=== PATIENT | female | born 1995 | race Caucasian/White ===

== ENCOUNTER 2016-12-27 08:23 | Emergency (ER) | payer OTHER ==
[~2016-12-27] VITALS: Ht 188 cm; Wt 86.0 kg
[2016-12-27 08:28] VITALS: TEMP 36.8; Ht 188 cm; Wt 86.0 kg
[2016-12-27] MEDS ORDERED: BCPILLS PO (09:15)
--- NOTE | 2016-12-27 10:54 | DIAGNOSTIC IMAGING REPORT ---
MRI OF THE BRAIN WITHOUT AND WITH IV CONTRAST CLINICAL HISTORY: Severe right-sided headache. Right pupil dilatation. COMPARISON STUDY: No previous studies for comparison. TECHNIQUE: MRI of the brain was performed from the vertex to the skull base utilizing various T1 and T2 weighted sequences. Following the IV administration of 8 mL of Gadavist contrast, additional enhanced images were obtained. FINDINGS: Sagittal T1, axial diffusion, proton density and T2 weighted axial, coronal FLAIR, and pre and post axial T1-weighted images were acquired. These were supplemented with post gadolinium coronal T1 weighted images. No intra or extra-axial mass lesions are visualized. Axial diffusion-weighted images reveal no evidence of acute or subacute infarction. There is no evidence of ventricular dilatation. Proton density T2-weighted and FLAIR images reveal no significant intraparenchymal signal abnormalities. There are no abnormal flow voids. There is no evidence of pathologic enhancement. IMPRESSION: Normal MRI of the brain. Electronically signed by: Igor Boyer M.D. 12/27/2016 10:53 AM Dictated Date/Time: 12/27/2016 10:50 AM
--- NOTE | 2016-12-27 11:51 | EMERGENCY ROOM VISIT NOTE ---
History First contact with patient: 08:45 Chief Complaint: EYE PAIN Stated Complaint: PAIN BEHIND EYE, BLURRED VISION History of Present Illness The patient is a 21 year old female who presents to the Emergency Room with complaints of dilation of her right pupil and right-sided headache. The patient states that last night she started with pain adjacent to her right eye and radiating back across the hoahaoism area. This morning when she woke up she noticed her right pupil was dilated and continued to have the right-sided headache. The patient states her vision is blurry worse with near vision the patient denies any other visual changes or photosensitivity. The patient wears contacts. The patient states that in the past her left pupil would be dilated intermittently but never her right eye. She has never had any diagnostic imaging performed of her head although she has had 2 concussions one year ago.. Review of Systems 10 system review was performed and was negative unless stated otherwise history of present illness. Social History Smoking Status: Never Smoker Current/Historical Medications Scheduled Control Pills ( Control Pills), 1 TAB PO DAILY Allergies Coded Allergies: Penicillins (Unverified Allergy, Severe, anaphylaxis, 12/27/16) Sulfa Antibiotics (Unverified Allergy, Severe, anaphylaxis, 12/27/16) Physical Exam Vital Signs Date Time Temp Pulse Resp B/P (MAP) Pulse Ox O2 Delivery O2 Flow Rate FiO2 12/27/16 10:03 72 16 126/79 99 Room Air 12/27/16 08:28 36.8 79 17 125/67 98 Room Air Right Eye Acuity: 20/40 WITH CORRECTION Left Eye Acuity: 20/25 WITH CORRECTION Physical Exam GENERAL: 21-year-old white female appears in no acute distress. MENTAL Status: Alert and oriented 3. HEAD: Atraumatic, no acute bony abnormality noted. EYES: PERRLA. EOMs intact. Right pupil is dilated Funduscopic exam unremarkable. EARS: Canals clear. TMs without fluid level noted. NECK: Supple, no lymphadenopathy noted. No carotid bruits noted. LUNGS: Clear auscultation without wheezes rales or rhonchi. CARDIAC: Regular rate and rhythm without murmur. Pulses is full and equal throughout.. NEURO:Cranial nerves two through 12 intact. Cerebellar function intact with [id number]. Fine motor intact with alternating finger motions. Medical Decision & Procedures ER Provider Diagnostic Interpretation: MRI OF THE BRAIN WITHOUT AND WITH IV CONTRAST CLINICAL HISTORY: Severe right-sided headache. Right pupil dilatation. COMPARISON STUDY: No previous studies for comparison. TECHNIQUE: MRI of the brain was performed from the vertex to the skull base utilizing various T1 and T2 weighted sequences. Following the IV administration of 8 mL of Gadavist contrast, additional enhanced images were obtained. FINDINGS: Sagittal T1, axial diffusion, proton density and T2 weighted axial, coronal FLAIR, and pre and post axial T1-weighted images were acquired. These were supplemented with post gadolinium coronal T1 weighted images. No intra or extra-axial mass lesions are visualized. Axial diffusion-weighted images reveal no evidence of acute or subacute infarction. There is no evidence of ventricular dilatation. Proton density T2-weighted and FLAIR images reveal no significant intraparenchymal signal abnormalities. There are no abnormal flow voids. There is no evidence of pathologic enhancement. IMPRESSION: Normal MRI of the brain. Electronically signed by: Igor Boyer M.D. 12/27/2016 10:53 AM Dictated Date/Time: 12/27/2016 10:50 AM ED Course The patient was evaluated. The patient was offered pain medication but declined. The patient's visual acuity was 2040 in the right eye with correction and 20/25 in the left eye with correction. Pressure of her left eye was 16.8 and the pressure of her left eye was 18.0. MRI of the brain was performed with and without contrast as above without any acute findings. The patient's case was discussed with Dr. Rogers who agreed with treatment plan. Dr. Mendieta was consulted and informed of all clinical and diagnostic findings. He will see the patient in his office today at 3 PM. The patient was informed and was in agreement with treatment plan. The patient was discharged home in stable condition. Medical Decision Differential diagnosis include iritis, optic neuritis, brain neoplasm Impression Primary Impression: Pupil dilation Additional Impression: Headache Departure Information Dispostion Home / Self-Care Condition GOOD Referrals [facility] (PCP) Jakub Mendieta D.O. Forms HOME CARE DOCUMENTATION FORM, IMPORTANT VISIT INFORMATION, WORK / SCHOOL INSTRUCTIONS Patient Instructions [facility] Additional Instructions Tylenol as needed for headache. Appointment with Dr. Mendieta today at 3 PM. Recommend arriving 15 minutes prior to your appointment time to fill out paperwork. Problem Qualifiers Additional Impression: Headache Headache type: unspecified Headache chronicity pattern: acute headache Intractability: not intractable Qualified Codes: R51 - Headache
[2016-12-27 12:03] VITALS: BP 122/76; PULSE 68; O2SAT 99
[2016-12-27] MEDS ORDERED: GADAVIST IV PRN (14:30)
== END 2016-12-27 12:07 | disposition home or self-care (01) ==
LOC: C.EDB 08:26 → C.EDA 12:07
DX: H57.04 Mydriasis (principal); R51 Headache

== ENCOUNTER 2016-12-27 16:43 | Emergency (ER) | payer OTHER ==
[~2016-12-27] VITALS: Ht 188 cm; Wt 86.0 kg
[~2016-12-27 16:43] MED LIST: BCPILLS PO
[2016-12-27 16:46] VITALS: TEMP 37; Ht 188 cm; Wt 86.0 kg
[2016-12-27 17:21] LABS: BASO % 0.2 %; BASO ABS # 0.01 K/uL (0-0.2); COMPLETE YES; HEMATOCRIT 38.3 % (37-47); IG% 0.2 %; LYMPH % 31.2 %; LYMPH ABS # 1.97 K/uL (1.2-3.4); MEAN CELL VOLUME 90.3 fL (80-100); MEAN CORPUSCULAR HEMOGLOBIN 29.7 pg (25-34); MEAN CORPUSCULAR HGB CONC 32.9 g/dl (32-36); MEAN PLATELET VOLUME 9.5 fL (7.4-10.4); MONO % 7.6 %; NEUT % 59.8 %; PLATELET COUNT 284 K/uL (130-400); RED BLOOD COUNT 4.24 M/uL (4.2-5.4); WHITE BLOOD COUNT 6.31 K/uL (4.8-10.8)
--- NOTE | 2016-12-27 17:21 | EMERGENCY ROOM VISIT NOTE ---
History Report prepared by Renoibjayne: Ke Brito Under the Supervision of: Dr. Asmita Monae D.O. First contact with patient: 16:49 Chief Complaint: HEADACHE Stated Complaint: CRANIAL NERVE PALSY WITH MIGRAINE HE- REFERRED History of Present Illness The patient is a 21 year old female who was referred to the ED for an MRA. The patient was seen in the ED this morning with persistent right pupil dilation and a right-sided headache. The headache started around midnight, and the right pupil was noted to be dilated by a friend this morning. The patient had dilation of the left pupil on December 16, which lasted a few hours. The patient was referred back to the ED by Dr. Barrett (Rubber Compounder Formulator) for an MRA. The patient has a follow up with Ophthalmology scheduled tomorrow. She does have a family history of migraines maternally. Dr. Barrett suggested that the patient could be experiencing an atypical ocular migraine when I spoke with him over the phone prior to patient's arrival. She was referred to the ED to role out other pathologies. No recent illness. No hx of WELCH in her, unsure if any family members get headaches. 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 Stat MRI performed earlier today as an outpt was normal. Source of History: patient Onset: today Position: ear (right) Quality: other (dilation) Timing: other (persistent) Associated Symptoms: + headache Review of Systems See HPI for pertinent positives & negatives. A total of 6 systems reviewed and were otherwise negative. Past Medical & Surgical Medical Problems: (1) control Family History No pertinent family history Social History Smoking Status: Never Smoker Occupation Status: [employer] student Current/Historical Medications Scheduled Control Pills ( Control Pills), 1 TAB PO DAILY Allergies Coded Allergies: Penicillins (Unverified Allergy, Severe, anaphylaxis, 12/27/16) Sulfa Antibiotics (Unverified Allergy, Severe, anaphylaxis, 12/27/16) Physical Exam Vital Signs Date Time Temp Pulse Resp B/P (MAP) Pulse Ox O2 Delivery O2 Flow Rate FiO2 12/27/16 18:43 72 18 106/89 99 12/27/16 16:46 37.0 74 16 124/87 97 Room Air Physical Exam GENERAL: alert, well appearing, well nourished, no distress, non-toxic HEAD: No tenderness to palpation over the temples. EYE EXAM: Right pupil is markedly dilated, minimal / sluggish light reflex both direct and consensual, no evidence of trauma or subconjunctival hemorrhage, very minimal ptosis, no periorbital edema or ecchymosis. HEART: normal pulses LUNGS: no increased wob, equal chest rise/fall SKIN: no rash/sores NEURO EXAM: Normal gait, moving all extremities appropriately. No facial droop , normal speech, no ataxia, no focal deficit. Medical Decision & Procedures ER Provider Diagnostic Interpretation: Radiology results have been interpreted by the radiologist and reviewed by me. Brain MRA HISTORY: 3rd nerve palsy, ptosis, headache TECHNIQUE: 3-D [id number] MRA of the brain was performed without contrast. COMPARISON STUDY: None. FINDINGS: Visualized intracranial internal carotid arteries, distal vertebral arteries, and basilar artery are widely patent. There is no significant stenosis, occlusion, or aneurysm seen within the bilateral ACAs, MCAs, or recyclable materials distributor. IMPRESSION: No significant stenosis, occlusion, or aneurysm within the [place] of [place]. Electronically signed by: Jd Echols M.D. 12/27/2016 5:57 PM Dictated Date/Time: 12/27/2016 5:56 PM Laboratory Results 12/27/16 17:10 Red Blood Count 4.24, Mean Corpuscular Volume 90.3, Mean Corpuscular Hemoglobin 29.7, Mean Corpuscular Hemoglobin Concent 32.9, Mean Platelet Volume 9.5, Neutrophils (%) (Auto) 59.8, Lymphocytes (%) (Auto) 31.2, Monocytes (%) (Auto) 7.6, Eosinophils (%) (Auto) 1.0, Basophils (%) (Auto) 0.2, Neutrophils # (Auto) 3.78, Lymphocytes # (Auto) 1.97, Monocytes # (Auto) 0.48, Eosinophils # (Auto) 0.06, Basophils # (Auto) 0.01 12/27/16 17:10 Test 12/27/16 17:10 White Blood Count 6.31 K/uL (4.8-10.8) Red Blood Count 4.24 M/uL (4.2-5.4) Hemoglobin 12.6 g/dL (12.0-16.0) Hematocrit 38.3 % (37-47) Mean Corpuscular Volume 90.3 fL (80-100) Mean Corpuscular Hemoglobin 29.7 pg (25-34) Mean Corpuscular Hemoglobin Concent 32.9 g/dl (32-36) Platelet Count 284 K/uL (130-400) Mean Platelet Volume 9.5 fL (7.4-10.4) Neutrophils (%) (Auto) 59.8 % Lymphocytes (%) (Auto) 31.2 % Monocytes (%) (Auto) 7.6 % Eosinophils (%) (Auto) 1.0 % Basophils (%) (Auto) 0.2 % Neutrophils # (Auto) 3.78 K/uL (1.4-6.5) Lymphocytes # (Auto) 1.97 K/uL (1.2-3.4) Monocytes # (Auto) 0.48 K/uL (0.11-0.59) Eosinophils # (Auto) 0.06 K/uL (0-0.5) Basophils # (Auto) 0.01 K/uL (0-0.2) RDW Standard Deviation 45.3 fL (36.4-46.3) RDW Coefficient of Variation 13.8 % (11.5-14.5) Immature Granulocyte % (Auto) 0.2 % Immature Granulocyte # (Auto) 0.01 K/uL (0.00-0.02) Erythrocyte Sedimentation Rate 11 mm/hr (0-21) Anion Gap 9.0 mmol/L (3-11) Est Creatinine Clear Calc Drug Dose 110.1 ml/min Estimated GFR () 93.9 Estimated GFR (Non- 81.0 BUN/Creatinine Ratio 7.6 (10-20) Calcium Level 8.8 mg/dl (8.5-10.1) Human Chorionic Gonadotropin, Qual NEG (NEG) Laboratory results per my review. ED Course 1705: The patient was evaluated in room C12b. A complete history and physical exam was performed. 1715: Discussed the plan with the patient's curriculum coach and her team physician. 1802: Updated the patient. Discussed the MRI. 1815: Discussed results with the patient's applications trainer and cross country/track and field coach at bedside. Discussed with pt's mother via phone. She will be discharged. Medical Decision There is no differential diagnosis. Medication Reconciliation: I attest that I have personally reviewed the patient' s current medication list. Blood pressure screening: Patient was found to have normal blood pressure on screening and does not require follow-up. Pt to f/u with Dr. Barrett again tomorrow as scheduled. Team physician and trainers aware of all results and I spoke with the patients mother on the phone also regarding her evaluation and results as well as follow-up scheduled. Impression Primary Impression: Anisocoria Additional Impressions: Pupil dilated 3Rd cranial nerve palsy Scribe Attestation The scribe's documentation has been prepared under my direction and personally reviewed by me in its entirety. I confirm that the note above accurately reflects all work, treatment, procedures, and medical decision making performed by me. Departure Information Dispostion Home / Self-Care Referrals [facility] (PCP) Forms HOME CARE DOCUMENTATION FORM, IMPORTANT VISIT INFORMATION Patient Instructions [facility] Additional Instructions Please keep your appointment tomorrow as scheduled with the tax advisor. If you develop any new or worsening headaches, fevers, vomiting, dizziness, other vision changes, you have any other new concerns, please return the emergency room. Problem Qualifiers Additional Impressions: 3Rd cranial nerve palsy Laterality: right Qualified Codes: H49.01 - Third [oculomotor] nerve palsy, right eye
[2016-12-27 17:42] LABS: BUN/CREATININE RATIO 7.6 (10-20); CALCIUM 8.8 mg/dl (8.5-10.1); POTASSIUM 3.8 mmol/L (3.5-5.1)
--- NOTE | 2016-12-27 17:58 | DIAGNOSTIC IMAGING REPORT ---
Brain MRA HISTORY: 3rd nerve palsy, ptosis, headache TECHNIQUE: 3-D [id number] MRA of the brain was performed without contrast. COMPARISON STUDY: None. FINDINGS: Visualized intracranial internal carotid arteries, distal vertebral arteries, and basilar artery are widely patent. There is no significant stenosis, occlusion, or aneurysm seen within the bilateral ACAs, MCAs, or medication aide. IMPRESSION: No significant stenosis, occlusion, or aneurysm within the [place] of [place]. Electronically signed by: Jd Echols M.D. 12/27/2016 5:57 PM Dictated Date/Time: 12/27/2016 5:56 PM
[2016-12-27 18:06] LABS: PREG INTERNAL NEGATIVE QC NEG CLEAR BACKGROUND; PREG INTERNAL POSITIVE QC POS CONTROL LINE
[2016-12-27 18:43] VITALS: BP 106/89; PULSE 72; O2SAT 99
== END 2016-12-27 18:44 | disposition home or self-care (01) ==
LOC: C.EDB 16:45 → C.EDC 18:44
DX: H57.02 Anisocoria (principal); H57.04 Mydriasis; H49.00 Third [oculomotor] nerve palsy, unspecified eye; Z88.0 Allergy status to penicillin; Z88.2 Allergy status to sulfonamides; Z84.89 Family history of other specified conditions